=== PATIENT | male | born 1985 | race Caucasian/White ===

== ENCOUNTER 2021-11-29 23:20 | Emergency (ER) | payer OTHER ==
[2021-11-29 23:25] VITALS: BMI 30.8
[2021-11-30] MEDS ORDERED: DALBAVANCIN HCL 1,500 MG in DEXTROSE 5%-WATER - 500 ML IVPB ONE (01:12)
[2021-11-30] MEDS ORDERED: DALBAVANCIN HCL 500 MG VIAL (RESTRICTED TO ID ONLY) IVPB ONE ×2 (01:54→01:55)
[2021-11-30 04:45] VITALS: BP 123/73; PULSE 90; RESP 18; TEMP 98.1
== END 2021-11-30 05:26 | disposition home or self-care (01) ==
LOC: JER 23:20
PROC: 3E033GC Introduction of Other Therapeutic Substance into Peripheral Vein, Percutaneous Approach (ICD-10-PCS; principal; 2021-11-29)
DX: L03.312 Cellulitis of back [any part except buttock and flank] (principal)
CPT/HCPCS: 76604; 99284-25; J0875

== ENCOUNTER 2021-12-01 08:47 | Inpatient (IN) | payer OTHER ==
[2021-12-01] MEDS ORDERED: SODIUM CHLORIDE 0.9% 500 ML INFUS.BAG IV ONE (10:16)
[2021-12-01 11:17] LABS: BASO % 0.1 % (0-2.0); EOS % 2.7 % (0-4.5); HEMOGLOBIN 16.8 GM/dL (11.7-16.9); LYMPH % 13.1 % (8-40); MCH 29.4 pg (25.7-33.7); MCHC 33.6 g/dl (32.0-35.9); MEAN CELL VOLUME 87.4 fl (80-96); MEAN PLT VOLUME 9.4 fl (7.5-11.1); MONO % 6.3 % (3.8-10.2); NEUT % 77.8 % (42.8-82.8); PLATELET COUNT 227 10^3/uL (134-434); RBC 5.72 M/mm3 (4.00-5.60); RDW 14.3 % (11.9-15.9); WHITE BLOOD COUNT 13.7 K/mm3 (4.0-10.0)
[2021-12-01 11:18] LABS: VENOUS BASE EXCESS 1.5 mmol/L (-2-2); VENOUS O2 SATURATION 57.2 % (70-80); VENOUS PCO2 52.5 mmHg (38-52); VENOUS PH 7.352 (7.310-7.410)
[2021-12-01 11:25] LABS: PROTHROMBIN TIME (PATIENT) 11.5 SEC (9.7-13.0)
[2021-12-01 11:28] LABS: ACTIVATED PTT 33.1 SECONDS (25.2-36.5)
[2021-12-01 11:44] LABS: EPI CELLS 18 /uL (0-25.1); HYALINE CASTS 9 /uL (0-3.1); URINE APPEARANCE CLEAR; URINE BACTERIA 2 /uL (0-1359); URINE BILIRUBIN NEGATIVE (NEGATIVE); URINE COLOR DK YELLOW; URINE GLUCOSE (UA) NEGATIVE (NEGATIVE); URINE KETONE TRACE (NEGATIVE); URINE LEUK ESTERASE NEGATIVE (NEGATIVE); URINE NITRITE NEGATIVE (NEGATIVE); URINE PROTEIN 1+ (NEGATIVE); URINE RBC 24 /uL (0-23.9); URINE UROBILINOGEN 0.2 mg/dL (0.2-1.0); URINE WBC 31 /uL (0-25.8)
[2021-12-01 11:45] LABS: CHLORIDE 101 mmol/L (98-107); SODIUM 137 mmol/L (136-145)
[2021-12-01 11:48] LABS: ALBUMIN 3.7 g/dl (3.4-5.0); ANION GAP 7 MMOL/L (8-16); BLOOD UREA NITROGEN 8.1 mg/dL (7-18); CO2 28 mmol/L (21-32); GLUCOSE,RANDOM 121 mg/dL (74-106)
[2021-12-01 11:51] LABS: CREATININE 0.9 mg/dL (0.55-1.3); SGOT/AST 24 U/L (15-37); SGPT/ALT 43 U/L (13-61)
[2021-12-01 11:53] LABS: BILIRUBIN,TOTAL 0.7 mg/dL (0.2-1); TOT PROT 7.7 g/dl (6.4-8.2)
[2021-12-01 11:55] LABS: ALK PHOS 126 U/L (45-117)
[2021-12-01] MEDS ORDERED: CEFEPIME HCL/D5W 1 GM/50 ML BAG IVPB ONE (12:03)
[2021-12-01] MEDS ORDERED: VANCOMYCIN 1,000 MG in DEXTROSE 5%-WATER - 250 ML IVPB ONE (12:03)
[2021-12-01] MEDS ORDERED: CEFEPIME 1 GM/100 ML BAG IVPB ONE (12:08)
[2021-12-01] MEDS ORDERED: VANCOMYCIN/WATER FOR INJ (PEG) 1,000 MG/200 ML BAG IVPB ONE ×2 (12:27→13:00)
[2021-12-01] MEDS ORDERED: KETOROLAC TROMETHAMINE 15 MG/ML VIAL IVPUSH ONE (12:33)
[2021-12-01] MEDS ORDERED: diphenhydrAMINE HCL 50 MG CAPSULE PO ONE (12:34)
[2021-12-01] MEDS ORDERED: DEXAMETHASONE SOD PHOSPHATE 10 MG/1 ML VIAL IVPUSH ONE (12:34)
[2021-12-01] MEDS ORDERED: DEXAMETHASONE SOD PHOSPHATE 10 MG/1 ML VIAL ONE (12:35)
[2021-12-01] MEDS ORDERED: KETOROLAC TROMETHAMINE 15 MG/ML VIAL ONE (12:35)
[2021-12-01] MEDS ORDERED: diphenhydrAMINE HCL 25 MG CAPSULE (FP) PO ONE (12:35)
[2021-12-01] MEDS ORDERED: CEFEPIME 1 GM in DEXTROSE 5%-WATER - 50 ML IVPB ONE (13:00)
[2021-12-01] MEDS ORDERED: ACETAMINOPHEN 325 MG TABLET (FP) PO PRN (15:57)
[2021-12-01] MEDS ORDERED: ACETAMINOPHEN 325 MG TABLET (FP) ONE (16:48)
[2021-12-01] MEDS ORDERED: IBUPROFEN 800 MG/8 ML IJ IVPB ONE (18:52)
[2021-12-01] MEDS: diphenhydrAMINE HCL 25 MG CAPSULE (FP) PO PRN (19:06)
[2021-12-01] MEDS ORDERED: morphine CARPU-JECT 2 MG/1 ML DISP.SYRIN IVPUSH ONE (19:11)
[2021-12-02] MEDS: MUPIROCIN 2% TOPICAL OINTMENT 22 GM TUBE TP SCH ×3 (00:09→22:05)
[2021-12-02] MEDS: diphenhydrAMINE HCL 25 MG CAPSULE (FP) PO PRN ×3 (03:44→23:22)
[2021-12-02] MEDS: NICOTINE 21 MG/24 HOURS TOPICAL PATCH TD SCH ×2 (03:46→10:43)
[2021-12-02 05:01] VITALS: BMI 35.5
[2021-12-02] MEDS: IBUPROFEN 800 MG/8 ML IJ IVPB PRN ×2 (07:11→13:41)
[2021-12-02 09:10] LABS: BASO % 0.3 % (0-2.0); HEMATOCRIT 45.7 % (35.4-49); HEMOGLOBIN 15.2 GM/dL (11.7-16.9); LYMPH % 12.6 % (8-40); MCHC 33.2 g/dl (32.0-35.9); MEAN CELL VOLUME 87.5 fl (80-96); MEAN PLT VOLUME 9.5 fl (7.5-11.1); MONO % 5.7 % (3.8-10.2); NEUT % 80.4 % (42.8-82.8); PLATELET COUNT 215 10^3/uL (134-434); RBC 5.23 M/mm3 (4.00-5.60); RDW 14.1 % (11.9-15.9); WHITE BLOOD COUNT 15.4 K/mm3 (4.0-10.0)
[2021-12-02 09:26] LABS: CALCIUM 8.6 mg/dL (8.5-10.1)
[2021-12-02 09:27] LABS: ALBUMIN 3.2 g/dl (3.4-5.0); BLOOD UREA NITROGEN 7.9 mg/dL (7-18)
[2021-12-02 09:30] LABS: CREATININE 0.6 mg/dL (0.55-1.3)
[2021-12-02 09:32] LABS: BILIRUBIN,TOTAL 0.5 mg/dL (0.2-1); TOT PROT 6.8 g/dl (6.4-8.2)
[2021-12-02] MEDS ORDERED: VANCOMYCIN 1 GM in D5W (PRE-DOCKED) 1,000 MG/250 ML IVPB SCH ×2 (10:00→12:00)
[2021-12-02] MEDS: ENOXAPARIN NA (PORCINE) 40 MG/0.4 ML DISP.SYRIN SQ SCH (10:43)
[2021-12-02] MEDS: morphine SULFATE IMMEDIATE RELEASE 30 MG TAB PO PRN ×3 (12:47→21:54)
[2021-12-02] MEDS: VANCOMYCIN/WATER 1250 MG 1,250 MG/250 ML BAG IVPB SCH (13:52)
[2021-12-02] MEDS ORDERED: DOCUSATE SODIUM 100 MG CAPSULE (FP) PO PRN (14:49)
[2021-12-03] MEDS: VANCOMYCIN/WATER 1250 MG 1,250 MG/250 ML BAG IVPB SCH ×2 (01:32→13:37)
[2021-12-03] MEDS ORDERED: LORazepam 1 MG TABLET PO ONE (03:27)
[2021-12-03] MEDS ORDERED: HYDROmorphone HCl 2 MG/ML VIAL IVPUSH ONE (03:28)
[2021-12-03 08:34] LABS: BASO % 0.5 % (0-2.0); EOS % 3.3 % (0-4.5); HEMATOCRIT 47.2 % (35.4-49); HEMOGLOBIN 15.6 GM/dL (11.7-16.9); LYMPH % 17.6 % (8-40); MCH 29.3 pg (25.7-33.7); MEAN CELL VOLUME 88.6 fl (80-96); MEAN PLT VOLUME 8.7 fl (7.5-11.1); MONO % 7.5 % (3.8-10.2); NEUT % 71.1 % (42.8-82.8); PLATELET COUNT 210 10^3/uL (134-434); RBC 5.33 M/mm3 (4.00-5.60); RDW 13.9 % (11.9-15.9)
[2021-12-03] MEDS: NICOTINE 21 MG/24 HOURS TOPICAL PATCH TD SCH (09:52)
[2021-12-03] MEDS: ENOXAPARIN NA (PORCINE) 40 MG/0.4 ML DISP.SYRIN SQ SCH (09:52)
[2021-12-03] MEDS ORDERED: oxyCODONE HCL 5 MG TABLET PO ONE ×2 (10:35→14:15)
[2021-12-03] MEDS: MUPIROCIN 2% TOPICAL OINTMENT 22 GM TUBE TP SCH (11:09)
[2021-12-03] MEDS: PIPERACILLIN/TAZOB 3.375 GM 3.375 GM in DEXTROSE 5%-WATER - 50 ML IVPB SCH ×2 (13:33→17:24)
[2021-12-03] MEDS: morphine SULFATE IMMEDIATE RELEASE 30 MG TAB PO PRN (20:31)
[2021-12-03] MEDS: diphenhydrAMINE HCL 25 MG CAPSULE (FP) PO PRN (20:31)
[2021-12-04] MEDS: MUPIROCIN 2% TOPICAL OINTMENT 22 GM TUBE TP SCH ×2 (00:15→10:42)
[2021-12-04] MEDS: VANCOMYCIN/WATER 1250 MG 1,250 MG/250 ML BAG IVPB SCH ×2 (00:15→16:01)
[2021-12-04] MEDS: PIPERACILLIN/TAZOB 3.375 GM 3.375 GM in DEXTROSE 5%-WATER - 50 ML IVPB SCH ×4 (02:36→10:39)
[2021-12-04 03:10] VITALS: RESP 20
[2021-12-04] MEDS: IBUPROFEN 800 MG/8 ML IJ IVPB PRN (06:28)
[2021-12-04 08:53] LABS: BASO % 0.5 % (0-2.0); EOS % 3.5 % (0-4.5); HEMATOCRIT 48.4 % (35.4-49); HEMOGLOBIN 16.4 GM/dL (11.7-16.9); LYMPH % 15.8 % (8-40); MCH 29.7 pg (25.7-33.7); MCHC 33.9 g/dl (32.0-35.9); MEAN CELL VOLUME 87.5 fl (80-96); MEAN PLT VOLUME 8.1 fl (7.5-11.1); MONO % 7.3 % (3.8-10.2); NEUT % 72.9 % (42.8-82.8); PLATELET COUNT 248 10^3/uL (134-434); RBC 5.54 M/mm3 (4.00-5.60); RDW 13.9 % (11.9-15.9); WHITE BLOOD COUNT 11.1 K/mm3 (4.0-10.0)
[2021-12-04 09:23] LABS: CALCIUM 9.3 mg/dL (8.5-10.1)
[2021-12-04 09:25] LABS: ALBUMIN 3.7 g/dl (3.4-5.0)
[2021-12-04 09:27] LABS: CREATININE 0.9 mg/dL (0.55-1.3)
[2021-12-04 09:29] LABS: BILIRUBIN,TOTAL 0.6 mg/dL (0.2-1); TOT PROT 7.7 g/dl (6.4-8.2)
[2021-12-04] MEDS: ENOXAPARIN NA (PORCINE) 40 MG/0.4 ML DISP.SYRIN SQ SCH (09:39)
[2021-12-04] MEDS: NICOTINE 21 MG/24 HOURS TOPICAL PATCH TD SCH (09:49)
[2021-12-04] MEDS: morphine SULFATE IMMEDIATE RELEASE 30 MG TAB PO PRN ×2 (10:40→18:25)
[2021-12-04 14:52] VITALS: BP 103/58; PULSE 79; TEMP 98.6
[2021-12-04 15:00] LABS: URINE BARBITURATES NEGATIVE (NEGATIVE); URINE BENZODIAZEPINES NEGATIVE (NEGATIVE)
[2021-12-04 15:02] LABS: COCAINE, UR NEGATIVE (NEGATIVE); METHADONE, UR NEGATIVE (NEGATIVE); OPIATES, URI POSITIVE (NEGATIVE); PHENCYCLIDINE,URINE NEGATIVE (NEGATIVE); URINE AMPHETAMINES NEGATIVE (NEGATIVE)
== END 2021-12-04 21:02 | disposition short-term general hospital (02) | DRG 603 ==
LOC: JER 08:47 → JERBED 12:42 → J8W 12-02 02:25
PROVIDERS: ADMIT Internal Medicine
DX: L02.11 Cutaneous abscess of neck (principal); L02.212 Cutaneous abscess of back [any part, except buttock and flank]; E66.9 Obesity, unspecified; Z68.35 Body mass index [BMI] 35.0-35.9, adult; R21 Rash and other nonspecific skin eruption; F41.9 Anxiety disorder, unspecified
CPT/HCPCS: 0241U-QW; 36415; 70490-TC; 71045-TC-FY; 80053; 80307; 81003; 82553; 82803; 83036; 83605; 85025; 85610; 85730; 86850; 86900; 86901; 87040; 87070; 87186; 87205; 93005; 93010; 99285-25; C9803-CS; J1100; U0003; U0005

== ENCOUNTER 2022-05-07 19:58 | Emergency (ER) | payer OTHER ==
[2022-05-07 20:04] VITALS: BP 127/79; PULSE 67; RESP 18; TEMP 98.1; BMI 32.1
[2022-05-07] MEDS ORDERED: ACETAMINOPHEN 1000 MG/100 ML BAG IVPB ONE (21:30)
[2022-05-07] MEDS ORDERED: FAMOTIDINE 20 MG/50 ML IVPB 20 MG/50 ML MG IVPB ONE ×2 (21:30→21:37)
[2022-05-07] MEDS ORDERED: SODIUM CHLORIDE 0.9% 500 ML INFUS.BAG IV ONE (21:30)
[2022-05-07] MEDS ORDERED: MAG HYDROX/AL HYDROX/SIMETH 30 ML UNIT-DOSE CUP PO ONE (21:30)
[2022-05-07] MEDS ORDERED: ACETAMINOPHEN INJECTION 100 ML IVPB ONE (21:37)
[2022-05-07] MEDS ORDERED: MAG HYDROX/AL HYDROX/SIMETH 30 ML UNIT-DOSE CUP ONE (21:37)
[2022-05-07 22:04] LABS: BASO % 0.5 % (0-2.0); EOS % 3.5 % (0-4.5); HEMATOCRIT 48.5 % (35.4-49); HEMOGLOBIN 16.8 GM/dL (11.7-16.9); LYMPH % 31.4 % (8-40); MCH 29.4 pg (25.7-33.7); MCHC 34.7 g/dl (32.0-35.9); MEAN CELL VOLUME 84.8 fl (80-96); MONO % 8.2 % (3.8-10.2); NEUT % 56.4 % (42.8-82.8); PLATELET COUNT 225 10^3/uL (134-434); RBC 5.72 M/mm3 (4.00-5.60); WHITE BLOOD COUNT 9.2 K/mm3 (4.0-10.0)
[2022-05-07 22:09] LABS: ALBUMIN 3.8 g/dl (3.4-5.0); BLOOD UREA NITROGEN 11.4 mg/dL (7-18); CALCIUM 8.3 mg/dL (8.5-10.1)
[2022-05-07 22:11] LABS: CREATININE 0.9 mg/dL (0.55-1.3)
[2022-05-07 22:13] LABS: BILIRUBIN,TOTAL 0.6 mg/dL (0.2-1)
[2022-05-07 22:15] LABS: TOT PROT 7.7 g/dl (6.4-8.2)
== END 2022-05-08 00:22 | disposition left against medical advice (07) ==
LOC: JER 19:58
PROC: 3E0333Z Introduction of Anti-inflammatory into Peripheral Vein, Percutaneous Approach (ICD-10-PCS; principal; 2022-05-07)
PROC: 3E033GC Introduction of Other Therapeutic Substance into Peripheral Vein, Percutaneous Approach (ICD-10-PCS; 2022-05-07)
DX: R10.84 Generalized abdominal pain (principal)
CPT/HCPCS: 0241U-QW; 36415; 71046-TC-FY; 74177-TC; 80053; 82272; 83605; 83690; 84484; 85025; 93005; 93010; 99285-25; Q9967